=== PATIENT | female | born 1995 | race American Indian/Alaskan Native ===

== ENCOUNTER 2022-02-21 17:35 | Emergency (ER) | payer MEDICAID, OTHER ==
[~2022-02-21] VITALS: Ht 160 cm; Wt 59.1 kg
--- NOTE | 2022-02-21 17:54 | NUR ---
BAHMAN BAUMAN [phone]. ROOM [facility] [phone].
[2022-02-21] MEDS ORDERED: ondansetron/PF 4mg/2ml inj IV ONE ×2 (17:55→19:35)
[2022-02-21] MEDS ORDERED: NALO4SPR BOTHNARES (18:32)
--- NOTE | 2022-02-21 19:54 | NUR ---
This RN called boyfrienpankaj Jeffers to give patient a ride home. Zeyad stated that he was on his way and will be here in ten minutes. Zyead's phone number: [phone]
[2022-02-21] MEDS ORDERED: ONDA4TAB12 PO (20:01)
[2022-02-21 20:05] VITALS: BP 130/85
== END 2022-02-21 20:09 | disposition home or self-care (01) ==
LOC: ER 17:36 → EDBD 17:36 → ER 20:09
DX: T40.5X1A Poisoning by cocaine, accidental (unintentional), initial encounter (principal); R11.0 Nausea; Z72.89 Other problems related to lifestyle; F14.90 Cocaine use, unspecified, uncomplicated; Z88.0 Allergy status to penicillin; Z79.899 Other long term (current) drug therapy; Y92.89 Other specified places as the place of occurrence of the external cause
CPT/HCPCS: 93005; 96374; 96376; 99291; J2405; 99284